=== PATIENT | female | born 1945 | race Asian ===

== ENCOUNTER 2020-02-27 11:39 | Emergency (ER) | payer OTHER ==
[~2020-02-27] VITALS: Ht 144.8 cm; Wt 45.7 kg
--- NOTE | 2020-02-27 12:27 | NUR ---
PT CAME IN CO OF DIZZINESS AND VOMITTING. PT DENIES ANY OTHER RESP SYMTPOMS. EKG COMPLETE. ACCOMPANIED BY FAMILY MEMBER. EKG COMPLETE. WARM BLANKETS PROVIDED. CONNECTED TO ALL MONITORING EQUIPMENT.
[2020-02-27] MEDS ORDERED: SODIUM CHLORIDE 0.9% 1,000ML IVBOLUS ONE (14:00)
[2020-02-27] MEDS ORDERED: SODIUM CHLORIDE FLUSH 10ML SYR IVF ONE (14:00)
[2020-02-27] MEDS ORDERED: MECLIZINE CHEWABLE 25 MG TAB PO ONE (14:00)
[2020-02-27] MEDS ORDERED: ONDANSETRON 2MG/ML, 2ML IVPush ONE (14:00)
--- NOTE | 2020-02-27 14:02 | NUR ---
TASK RN NOTE: PT AMBULATES WELL WITH RN ASSIST. UA COLLECTION COMPLETED AND SENT. PT BACK IN BED, ON MONITORS. BLANKETS IN PLACE. AT BEDSIDE.
[2020-02-27 14:18] LABS: MICROSCOPIC NOT IND
[2020-02-27 14:21] LABS: BASOPHILS % (AUTO) 1 % (0-1); EOSINOPHILS % (AUTO) 1 % (1-7); LYMPHOCYTES % (AUTO) 22 % (22-44); MEAN CORPUSCULAR HEMOGLOBIN 27.3 pg (27.0-34.8); MEAN CORPUSCULAR HGB CONC 32.9 g/dL (32.4-35.8); MEAN PLATELET VOLUME 7.6 fL (7.4-10.4); MONOCYTES % (AUTO) 4 % (2-9); NEUTROPHILS % (AUTO) 72 % (42-75); PLATELET COUNT 297 x10^3/uL (130-400); RED BLOOD COUNT 4.86 x10^6/uL (3.82-5.3); RED CELL DISTRIBUTION WIDTH 14.7 % (9.6-15.2)
[2020-02-27 14:22] LABS: MD NO
[2020-02-27 14:27] LABS: ALBUMIN 4.1 g/dL (3.4-5.0); ANION GAP 3 mmol/L (5-15); CALCIUM 9.2 mg/dL (8.5-10.1); CHLORIDE 107 mmol/L (98-107)
[2020-02-27 14:32] LABS: ALANINE AMINOTRANSFERASE 31 U/L (12-78); ALKALINE PHOSPHATASE 82 U/L (45-117); BILIRUBIN,TOTAL 0.8 mg/dL (0.2-1.0); CREATININE 0.68 mg/dL (0.55-1.02); TOTAL PROTEIN 8.3 g/dL (6.4-8.2)
[2020-02-27] MEDS ORDERED: MECLIZINE CHEWABLE 25 MG TAB ONE (14:40)
[2020-02-27] MEDS ORDERED: ONDANSETRON 2MG/ML, 2ML ONE (14:40)
[2020-02-27] MEDS ORDERED: LOSA25TA25 PO (16:37)
[2020-02-27] MEDS ORDERED: ATOR20TA37 PO (16:37)
[2020-02-27 16:38] VITALS: BP 172/71
== END 2020-02-27 17:20 | disposition home or self-care (01) ==
LOC: ED 17:10
DX: R42 Dizziness and giddiness (principal); R11.2 Nausea with vomiting, unspecified
CPT/HCPCS: 36415; 80053; 81003; 85025; 93005; 96361; 96374; 99285; J2405; J7030